=== PATIENT | female | born 1960 | race Two or more races ===

== ENCOUNTER 2018-05-07 14:41 | Emergency (ER) | payer BC, OTHER ==
[2018-05-07 14:50] VITALS: BP 117/77
[2018-05-07] MEDS ORDERED: KETOROLAC TROMETH 60MG/2ML VIAL IM ONE (16:15)
== END 2018-05-07 16:40 | disposition home or self-care (01) ==
LOC: EDBD 14:41 → ER 14:47
DX: S32.018A Other fracture of first lumbar vertebra, initial encounter for closed fracture (principal); E07.9 Disorder of thyroid, unspecified; X50.3XXA Overexertion from repetitive movements, initial encounter; X50.0XXA Overexertion from strenuous movement or load, initial encounter; Y93.89 Activity, other specified; Y99.8 Other external cause status; Y92.89 Other specified places as the place of occurrence of the external cause
CPT/HCPCS: 72100; 96372; 99284; J1885